=== PATIENT | male | born 1990 | race Caucasian/White ===

== ENCOUNTER 2017-02-17 17:53 | Inpatient (IN) | payer OTHER ==
--- NOTE | ~2017-02-17 | PN ---
Unit #: [id number] #: [id number] Patient: FELICITY SHAY [id number] [facility] [address] [place] [address] [id number] MR#: [id number] NAME: FELICITY SHAY ROOM: P258 Age: 26 Sex: M Admission Date: 02/17/2017 : 1990 Attending Physician: Gil Flores M.D. Admitting Physician: Gil Flores M.D. Primary Care Physician: Primary Care Physician Shawanda DODD PROGRESS NOTES DATE 02/21/2017 DISCUSSION Felicity is a 26-year-old male, seen on 02/21/2017. The patient interviewed, chart reviewed, and obtained information from the nursing staff. The patient was compliant and cooperative. Mood sad and dysphoric, flat affect, and guarded. The patient's vital signs, 97.5, 82, and 132/85. The patient continues to report hearing things, seeing things, suicidal ideation, flat, sad, dysphoric mood, flat affect, guarded, paranoid. REVIEW OF SYSTEMS Complete review of systems unremarkable. MENTAL STATUS EXAMINATION General appearance: Patient dressed casually. Attention span and concentration, poor. Oriented to place and person. Mood and affect, sad and dysphoric. Speech, monotone. Thought process, circumstantial. The patient reported having suicidal ideation, hallucinations. Recent and remote memory, poor. Insight and judgment, poor. DIAGNOSIS Schizophrenia, chronic, paranoid type. ASSESSMENT/PLAN Advised to continue with the current medication with the plan to increase Celexa to 40 mg daily for depressive symptoms and increased Thorazine 200 mg three times a day for psychosis. The patient's last WBC count 5.2. Dictated by... Gil Flores M.D. ALFONSO/chris TD: 02/22/2017 08:45 JOB #: [id number] Unit #: [id number] #: [id number] Patient: FELICITY SHAY YOUSIF PROGRESS NOTES Page 1 of 1 X Gil Flores MD PROGRESS NOTE
--- NOTE | ~2017-02-17 | PN ---
Unit #: [id number] #: [id number] Patient: FELICITY SHAY [id number] [facility] [address] [place] [address] [id number] I MR#: [id number] NAME: FELICITY SHAY ROOM: P258 Age: 26 Sex: M Admission Date: 02/17/2017 : 1990 Attending Physician: Gil Flores M.D. Admitting Physician: Gil Flores M.D. Primary Care Physician: Primary Care Physician Shawanda COURTNEY NOTES DATE OF SERVICE: 02/22/2017 DISCUSSION Felicity Shay is a 26-year-old male, seen on 02/22/2017. The patient interviewed, chart reviewed, and obtained information from nursing staff. The patient was compliant, cooperative, tolerating medication fairly well. Continues to report hearing voices, voices telling him to harm himself, visual hallucination and auditory hallucination, wanted his medication to be increased. The medication was increased recently. We will wait, but still mentioning above-mentioned symptom. Admission blood sugar drawn was 239 this morning. Complete review of systems unremarkable. MENTAL STATUS EXAMINATION General appearance, the patient dressed casually. Attention span and concentration, fair. Attention seeking behavior. Oriented in time, place, and person. Mood and affect, labile. Speech, rapid. Thought process, circumstantial, guarded and reported having suicidal ideation, hallucination, auditory or visual. Recent and remote memory, poor. Insight and judgment, poor. DIAGNOSES 1. Schizophrenia, chronic paranoid type. 2. Mood disorder, not otherwise specified. ASSESSMENT AND PLAN Advised to continue with current medication and therapeutic protocol. If needed, consider further adjustment of medication. Dictated by... Obie Rubi/abbi TD: 02/22/2017 16:38 JOB #: [id number] Unit #: [id number] #: [id number] Patient: FELICITY SHAY PROGRESS NOTES Page 1 of 1 X Gil Flores MD PROGRESS NOTE
--- NOTE | ~2017-02-17 | CO ---
Unit #: [id number] #: [id number] Patient: FELICITY SHAY [id number] [facility] [address] [place] [address] [id number] MR#: [id number] NAME: FELICITY SHAY ROOM: P258 Age: 26 Sex: M Admission Date: 02/17/2017 : 1990 Attending Physician: Gil Flores M.D. Primary Care Physician: Primary Care Physician No Consultation Date: 02/18/2017 CONSULTATION REPORT SUBJECTIVE Felicity is a 26-year-old with type 1 diabetes. We have reviewed his medications, written orders and are monitoring his Accu-Cheks. Dictated by... Wendy Lai P.A.-C. for Obie Larose/abbi TD: 02/19/2017 00:42 JOB #: [id number] CONSULTATION REPORT Page 1 of 1 X Wendy Lai CONSULTATION REPORT
--- NOTE | ~2017-02-17 | PA ---
Unit #: [id number] #: [id number] Patient: FELICITY SHAY [id number] [facility] [address] [place] [address] [id number] I MR#: [id number] NAME: FELICITY SHAY ROOM: [facility] Age: 26 Sex: M Admission Date: 02/17/2017 : 1990 Date of Assessment: Attending Physician: Gil Flores M.D. Admitting Physician: Gil Flores M.D. Primary Care Physician: Primary Care Physician No PSYCHIATRIC ASSESSMENT INFORMANTS The patient's reliability, fair; chart reliability, good. CHIEF COMPLAINT Self-mutilating behavior, hearing voices. HISTORY OF PRESENT ILLNESS Felicity Thomas is a 26-year-old male, who has a history of previous treatment at [facility] in 05/2016 through [facility], presented with command hallucination. The patient reported hearing voices, telling him to kill himself. The patient reported voices are telling him to overdose on insulin to cut his neck. The patient reported the voices are telling him to choke out other and stab them. The patient reported cutting wrist last night, superficial scratches. The patient reported taking all his medication for a week in one dose yesterday in an attempt to make voices go away. The patient reported receiving messages from TV, radio. Needing inpatient admission at this time for psychiatric stabilization. PAST PSYCHIATRIC HISTORY Remarkable for history of previous treatment as mentioned above. Last admitted to [facility] in 06/04/2016. FAMILY HISTORY AND SOCIAL HISTORY The patient lives with a roommate, single. Family psychiatric illness is unknown. No known history of any abuse. The patient's father was diagnosed with schizophrenia. MEDICAL HISTORY Remarkable for diabetes and obesity. Musculoskeletal; muscle strength and tone, no atrophy or abnormal movement. Gait normal. MEDICATION HISTORY The patient is currently on Levemir 25 units at bedtime, Protonix 40 mg at bedtime, Minipress 1 mg at bedtime, Requip 1 mg at bedtime, Celexa 20 mg at bedtime, trazodone 75 mg at bedtime, Clozaril 200 mg b.i.d., Trileptal 300 mg b.i.d., Protonix 40 mg daily. ALLERGIES No known drug allergies. SUBSTANCE ABUSE HISTORY None. Unit #: [id number] #: [id number] Patient: FELICITY SHAY REVIEW OF SYSTEMS HEENT: Eyes, clear. Ears, nose, mouth, and throat; clear. CARDIOVASCULAR: Unremarkable. RESPIRATORY: Unremarkable. GI: Unremarkable. : Unremarkable. SKIN: Unremarkable. LYMPH NODE: Unremarkable. NEUROLOGIC: Unremarkable. ENDOCRINE: Unremarkable. HEMATOLOGIC: Unremarkable. ALLERGIC/IMMUNOLOGIC: Unremarkable. MUSCULOSKELETAL: Muscle strength and tone, no atrophy or abnormal movement. Gait normal. MENTAL STATUS EXAMINATION CONSTITUTIONAL: Measurement of vital signs; temperature 98.3, pulse 102, respirations 20, blood pressure 144/91. Height 5 feet 9 inches, weight 212 pounds. GENERAL APPEARANCE: The patient dressed casually. Hygiene and grooming, poor. No facial deformity noted. MUSCULOSKELETAL: Please see above. PSYCHIATRIC EXAMINATION Description of speech, monotone. Description of thought process, circumstantial. Description of association, guarded, paranoid, delusion, hallucination of command hallucination, suicidal ideation. Denied any homicidal ideation. Description of the patient's judgment; concerning everyday activity, poor. Social situation, poor. Concerning psychiatric condition, poor. Complete mental status examination; oriented in time, place, and person. Recent and remote memory, fair. Attention span and concentration, fair. Language, able to name object and repeat phrases. Fund of knowledge, fair. Vocabulary, intact. Mood and affect, sad and depressed. Insight and judgment, fair to poor. ASSETS AND LIABILITIES Assets; the patient is articulate and able to take care of his ADL. Liability, history of depression and psychosis. ADMITTING DIAGNOSES Psychiatric: 1. Schizophrenia, chronic paranoid type, F20.0. 2. Rule out schizoaffective disorder, bipolar type, F25.9. 3. Anxiety disorder, not otherwise specified, F41.9. Secondary diagnosis: None. Medical diagnoses: Obesity, insulin-dependent diabetes mellitus, hypertension, hyperlipidemia. Stressors: Psychosocial stressor, chronic psychiatric illness, chronic medical condition. PSYCHIATRIC PLAN AND TREATMENT GOAL 1. Advised to admit the patient on the inpatient unit. Provide safe, supportive, and structured environment. Unit #: [id number] #: [id number] Patient: FELICITY SHAY 2. Ordered labs; CBC, CMP, UA, and UDS. 3. Precaution for self-harm, SP2 precaution, SIB2 precaution. Still observation for psychosis. VTS monitoring. 4. Advised to continue with current medication with a plan to add Thorazine 50 mg t.i.d., and SSRI. If needed, consider further adjustment of medication. Continue with Clozaril. If needed, make further adjustment of medication. We will also order medical consultation to monitor the patient's medical condition. Also monitor the patient's blood sugar. Treatment goal to attain euthymic mood, gain insight into his problem, and learn coping skills. DISCHARGE PLAN Plan to stabilize the patient and consider followup in outpatient program. ESTIMATED LENGTH OF STAY 5 to 10 days. Dictated by... Obie Rubi/abbi TD: 02/19/2017 03:26 JOB #: [id number] PSYCHIATRIC ASSESSMENT Page 1 of 1 X Gil Flores MD X PSYCHIATRIC ASSESSMENT
--- NOTE | ~2017-02-17 | PN ---
Unit #: [id number] #: [id number] Patient: FELICITY SHAY [id number] [facility] [address] [place] [address] [id number] I MR#: [id number] NAME: FELICITY SHAY ROOM: P258 Age: 26 Sex: M Admission Date: 02/17/2017 : 1990 Attending Physician: Gil Flores M.D. Admitting Physician: Gil Flores M.D. Primary Care Physician: Primary Care Physician Shawanda DODD PROGRESS NOTES DATE 02/24/2017 DISCUSSION Mr. Felicity Shay is a 26-year-old male seen on 02/24/2017. The patient interviewed, chart reviewed. Obtained information from nursing staff. The patient was compliant and cooperative. Reports sleeping good voices are better. Denied any thoughts of harming self or others. Compliant and cooperative. Complete review of systems unremarkable. MENTAL STATUS EXAMINATION General appearance, the patient dressed casually. Attention span and concentration fair. Mood and affect sad, dysphoric. Speech monotone. Thought process concrete. The patient denied any thoughts of harming self or others but still reporting voices. Recent and remote memory fair to poor. Insight and judgement fair to poor. DIAGNOSES Schizophrenia chronic paranoid type ASSESSMENT/PLAN Advise to continue with current medication and therapeutic protocol. If needed consider further adjustment of medication. Dictated by... Obie Rubi/vianca TD: 02/25/2017 02:00 JOB #: [id number] [facility] PROGRESS NOTES Page 1 of 1 X Gil Flores MD PROGRESS NOTE
--- NOTE | ~2017-02-17 | HP ---
Unit #: [id number] #: [id number] Patient: FELICITY SHAY [id number] [facility] [address] [place] [address] [id number] MR#: [id number] NAME: FELICITY HSAY ROOM: P258 Age: 26 Sex: M Admission Date: 02/17/2017 : 1990 Attending Physician: Gil Flores M.D. Admitting Physician: Gil Flores M.D. Primary Care Physician: Primary Care Physician No HISTORY AND PHYSICAL HISTORY OF PRESENT ILLNESS Felicity is a 26-year-old admitted to [address] [place] [address] with depression, verbalizing wanting to hurt himself. He has had numerous admissions to this facility. PAST MEDICAL HISTORY 1. Juvenile diabetes. He is noncompliant with his insulin. 2. Long history of polysubstance abuse. He denies anything currently. 3. High blood pressure. 4. Hyperlipidemia. 5. Gastroparesis. 6. History of psoriasis. PAST SURGICAL HISTORY Nothing reported. ALLERGIES No known drug allergies. SOCIAL HISTORY He denies cigarettes, alcohol and illicit drug use. FAMILY HISTORY Medically noncontributory. REVIEW OF SYSTEMS CONSTITUTIONAL: No fever or chills. HEENT: Denies any sore throat, ear pain or runny nose. CARDIOVASCULAR: Denies chest pain, irregular heart rhythm or palpitations. CHEST: Denies shortness of breath or cough. No hemoptysis. GASTROINTESTINAL: He does report some vomiting since admission. He has had in diarrhea. ENDOCRINE: Denies history of increased thirst or urination. No recent significant weight loss or gain. GENITOURINARY: Denies dysuria, frequency, or hematuria. SKIN: Denies any rashes. HEMATOLOGIC: Denies history of increased bleeding or bruising. MUSCULOSKELETAL: Denies any hot, swollen joints. No generalized muscle pain. NEUROLOGIC: Denies problems with vision or speech. No frequent, severe headaches. No numbness, tingling or weakness in any extremities. Denies loss of bladder or bowel control. CURRENT MEDICATIONS Unit #: [id number] #: [id number] Patient: FELICITY SHAY Phenergan 25 mg IM q 4 hours p.r.n. Levemir 25 units q h.s. Protonix 40 mg q h.s. Minipress 1 mg q h.s. Requip 1 mg q h.s. Celexa 20 mg q h.s. Trazodone 75 mg q h.s. Clozaril 200 mg b.i.d. Trileptal 300 mg b.i.d. Milk of Magnesia p.r.n. Maalox p.r.n. Tylenol p.r.n. NovoLog per sliding scale. NovoLog 5 units before each meal. PHYSICAL EXAMINATION GENERAL: Alert, well-nourished, in no apparent distress. VITAL SIGNS: B/P 144/90, heart rate 100, respirations 16, temperature 98.6. WEIGHT: 212 pounds. Height 5'9" SKIN: Warm and dry without rash or lesion. HEENT: Normocephalic. TMs not viewed. Oral and nasal passages clear. Conjunctivae clear. PERRLA. EOMs intact. NECK: Supple without lymphadenopathy or thyromegaly. HEART: Regular rate and rhythm without murmur. LUNGS: Clear. ABDOMEN: Soft, nontender. : Not done. EXTREMITIES: No evidence of cyanosis, clubbing or edema. Moves all without focal deficit. NEUROLOGICAL: Grossly within normal limits. Cranial Nerves: II: Visual chapin are intact. III, IV AND : Extraocular movements are intact. Pupils are equal, round and reactive to light. V: Facial sensation is grossly normal. VII: Facial movements and expression are normal. VIII: Auditory acuity grossly intact. IX, X: Uvula is midline. Phonation is normal. XI: Patient shrugs shoulders and turns head normally. XII: Tongue protrudes in the midline. Sensory and Motor Function: Sensory and motor sensation is grossly normal. Motor: moves all extremities well. Coordination: Gait is normal. Deep Tendon Reflexes: Intact. Accu-Chek on admission greater than 600. He was given 22 units of Humalog subcu for this blood sugar. MEDICAL ASSESSMENT AND PLAN 1. Psychiatric admission. 2. Juvenile diabetes. Patient continues to be noncompliant with his insulins. RECOMMENDATIONS 1. Psychiatric, per psychiatrist. 2. I see no contraindications to participating in facility's activities. MEDICAL PROGNOSIS Good. MEDICAL CONDITION Unit #: [id number] #: [id number] Patient: FELICITY SHAY Stable. Dictated by... Jolie Sotomayor/jackelyn TD: 02/18/2017 01:29 JOB #: [id number] HISTORY AND PHYSICAL Page 1 of 1 X Wendy Lai X HISTORY AND PHYSICAL
--- NOTE | ~2017-02-17 | DS ---
Unit #: [id number] #: [id number] Patient: FELICITY SHAY [id number] [facility] [address] [place] [address] [id number] I MR#: [id number] NAME: FELICITY SHAY ROOM: P258 Age: 26 Sex: M Admission Date: 02/17/2017 : 1990 Discharge Date: 02/25/2017 Attending Physician: Gil Flores M.D. Primary Care Physician: Primary Care Physician No DISCHARGE SUMMARY REASON FOR ADMISSION Psychosis, depression, suicidal ideation. DIAGNOSTIC STUDIES LABORATORY DATA: Unremarkable except WBC 5.2. HOSPITAL COURSE The patient was admitted to inpatient unit on February 17 and discharged on 02/25/2017. The patient was treated with group therapy, individual therapy, and medication management. The patient responded well with the above modalities of treatment and showed improvement. Subsequently the patient was discharged with a plan to follow up in outpatient program. DISCHARGE MEDICATIONS 1. Trileptal 300 mg twice daily for mood symptom. 2. Requip 1 mg at bedtime for restless legs. 3. Minipress 1 mg at bedtime for nightmare. 4. Zestril 10 mg daily for hypertension. 5. Clozaril 200 mg twice daily for psychosis with weekly WBC test. 6. Protonix 40 mg at bedtime for GERD. 7. Celexa 40 mg daily for depression. 8. Thorazine 100 mg 3 times a day for psychosis. 9. Melatonin 5 mg at bedtime for sleep. 10. Sinequan 200 mg at bedtime for sleep. The patient needed Clozaril and Thorazine combination as unable to do well with one antipsychotic medication. The patient was tried on Clozaril, Thorazine, and Risperdal in the past. Plan to taper off Thorazine once the patient is stable, within 6 months. The patient is currently on Clozaril. DISCHARGE DIAGNOSES PSYCHIATRIC: Schizophrenia, chronic, paranoid type, F20.0 Anxiety disorder not otherwise specified, F41.9 SECONDARY: Deferred. MEDICAL: Obesity. Insulin-dependent diabetes mellitus. Hypertension. Hyperlipidemia. STRESSORS: Psychosocial stressor. Chronic psychiatric issues. Chronic medical condition. FOLLOWUP CARE Unit #: [id number] #: [id number] Patient: FELICITY SHAY The patient to follow up in outpatient clinic as per health social work professor. CONDITION AT DISCHARGE The patient pleasant, cooperative. Denied any psychotic symptom or any suicidal ideation. PROGNOSIS Guarded. DIET AND ACTIVITY As tolerated. Dictated by... Obie Rubi/henrietta TD: 02/26/2017 06:48 JOB #: [id number] DISCHARGE SUMMARY Page 1 of 1 X Gil Flores MD X DISCHARGE SUMMARY
--- NOTE | ~2017-02-17 | PN ---
Unit #: [id number] #: [id number] Patient: FELICITY SHAY [id number] [facility] [address] [place] [address] [id number] I MR#: [id number] NAME: FELICITY SHAY ROOM: P258 Age: 26 Sex: M Admission Date: 02/17/2017 : 1990 Attending Physician: Gil Flores M.D. Admitting Physician: Gil Flores M.D. Primary Care Physician: Primary Care Physician Shawanda COURTNEY NOTES DATE OF SERVICE 02/19/2017 DISCUSSION Felicity Shay is a 26-year-old male seen on 02/19/2017. The patient interviewed, chart reviewed. Obtained information from nursing staff. The patient reported still hearing voices. Voices telling him to harm himself. Denied any plans. The patient guarded, paranoid. Declined family session. The patient continues to be isolative. Encouraged to attend group. Complete Review of Systems: Unremarkable. MENTAL STATUS EXAMINATION General Appearance: The patient's hygiene and grooming poor. Dressed casually. Attention span, concentration: Poor. Oriented in place and person. Mood and affect: Sad, depressed. Speech: Monotone. Thought process: [place]. The patient reported having suicidal ideation, hallucinations, hearing voices. Denied any plans. Able to contract for safety on the unit. Recent and remote memory: Poor. Insight and judgment: Poor. DIAGNOSIS Schizophrenia, chronic, paranoid type. ASSESSMENT/PLAN Advised to continue with current medication. If needed, consider further adjustment of medication such as increasing the dosage of Thorazine. The patient is currently on Clozaril. We will continue with that. The patient's CBC showed WBC 5.2, hemoglobin 13.1. Dictated by... Gil Flores M.D. SZTennille/henrietta TD: 02/20/2017 07:41 JOB #: [id number] Unit #: [id number] #: [id number] Patient: FELICITY SHAY PEAALISSA PROGRESS NOTES Page 1 of 1 X Gil Flores MD X PROGRESS NOTE
--- NOTE | ~2017-02-17 | PN ---
Unit #: [id number] #: [id number] Patient: FELICITY SHAY [id number] [facility] [address] [place] [address] [id number] I MR#: [id number] NAME: FELICITY SHAY ROOM: P258 Age: 26 Sex: M Admission Date: 02/17/2017 : 1990 Attending Physician: Gil Flores M.D. Admitting Physician: Gil Flores M.D. Primary Care Physician: Primary Care Physician Shawanda COURTNEY NOTES DATE OF SERVICE: 02/20/2017 DISCUSSION Felicity is a 26-year-old male, seen on 02/20/2017. The patient interviewed, chart reviewed, and obtained information from nursing staff. The patient continues to report hearing voices, visual hallucination, auditory hallucination, suicidal ideation, able to contract for safety, guarded, withdrawn, isolative. REVIEW OF SYSTEMS Complete review of systems unremarkable. MENTAL STATUS EXAMINATION General appearance, the patient dressed casually. Attention span and concentration, poor. Oriented in place and person. Mood and affect, labile. Speech, rapid. Thought process, circumstantial. The patient reported hallucination, visual and auditory; suicidal ideation. Recent and remote memory, poor. Insight and judgment, poor. DIAGNOSES 1. Schizophrenia, chronic, paranoid type. 2. Mood disorder, not otherwise specified. ASSESSMENT AND PLAN Advised to continue with current medication and therapeutic protocol. If needed, consider further adjustment of medication. Dictated by... Obie Rubi/abbi TD: 02/22/2017 02:30 JOB #: [id number] Unit #: [id number] #: [id number] Patient: FELICITY SHAY FABYALISSA PROGRESS NOTES Page 1 of 1 X Gil Flores MD PROGRESS NOTE
--- NOTE | ~2017-02-17 | PN ---
Unit #: [id number] #: [id number] Patient: FELICITY SHAY [id number] [facility] [address] [place] [address] [id number] I MR#: [id number] NAME: FELICITY SHAY ROOM: P258 Age: 26 Sex: M Admission Date: 02/17/2017 : 1990 Attending Physician: Gil Flores M.D. Admitting Physician: Gil Flores M.D. Primary Care Physician: Primary Care Physician Shawanda DODD PROGRESS NOTES DATE 02/18/2017 DISCUSSION Felicity Shay is a 26-year-old male, seen on 02/18/2017. The patient pleasant and cooperative, mood sad and dysphoric, flat affect, guarded, paranoid. The patient compliant with medication but still having depressive symptoms or hallucinations. REVIEW OF SYSTEMS Complete review of systems unremarkable. MENTAL STATUS EXAMINATION General appearance: Patient dressed casually, dressed in hospital attire, withdrawn, isolative. Attention span and concentration, poor. Oriented to place and person. Mood and affect, sad and depressed. Speech, monotone. Thought process, concrete. The patient reported having suicidal ideation, hallucinations. Recent and remote memory, poor. Insight and judgment, poor. DIAGNOSIS Schizophrenia, chronic paranoid type. ASSESSMENT/PLAN Advised to continue with the current medication and therapeutic protocol and if needed consider further adjustment of medication. Dictated by... Obie Rubi/chris TD: 02/19/2017 08:35 JOB #: [id number] Unit #: [id number] #: [id number] Patient: FELICITY SHAY PROGRESS NOTES Page 1 of 1 X Gil Flores MD PROGRESS NOTE
--- NOTE | ~2017-02-17 | PN ---
Unit #: [id number] #: [id number] Patient: FELICITY SHAY [id number] [facility] [address] [place] [address] [id number] MR#: [id number] NAME: FELICITY SHAY ROOM: P258 Age: 26 Sex: M Admission Date: 02/17/2017 : 1990 Attending Physician: Gil Flores M.D. Admitting Physician: Gil Flores M.D. Primary Care Physician: Primary Care Physician Shawanda DODD PROGRESS NOTES DATE 02/23/2017 DISCUSSION Felicity Shay is a 26-year-old male seen on 02/23/2017. The patient interviewed, chart reviewed. Obtained information from nursing staff. The patient compliant and cooperative but reported that he is still hearing voices voices telling him to harm himself. The patient reports having trouble sleeping. Reports medication causing him nightmares. The patient still guarded, withdrawn, isolative. Mood labile. Complete review of systems unremarkable. MENTAL STATUS EXAMINATION General appearance, the patient dressed casually. Attention span and concentration poor. Oriented to place and person. Mood and affect labile. Speech rapid. Thought process circumstantial. The patient denied any thoughts of harming others but having suicidal ideation, hallucination, command hallucination. Recent and remote memory poor. Insight and judgement poor. DIAGNOSES Schizophrenia chronic paranoid type. ASSESSMENT/PLAN Advise to discontinue trazodone, increase doxepin to 200 mg at bedtime to help with depression, anxiety, sleep and continue with the other medication same. If needed consider further adjustment of medication. Continue with all the precaution to keep the patient safe on the unit. Dictated by... Obie Rubi/vianca TD: 02/24/2017 03:12 JOB #: [id number] Unit #: [id number] #: [id number] Patient: FELICITY SHAY PROGRESS NOTES Page 1 of 1 X Gil Flores MD PROGRESS NOTE
[2017-02-19 09:27] LABS: BASOPHIL% 0.1 % (0-2.5); HEMATOCRIT 39.8 % (38.0-50.0); HEMOGLOBIN 13.1 gm/dL (13.0-16.0); LYMPHOCYTE# 2.4 X10e3 (1.0-3.5); LYMPHOCYTE% 47.1 % (17.0-45.0); MEAN CELL VOLUME 84.8 FL (83-96); MEAN PLATELET VOLUME 8.6 FL (6.5-11.5); MONOCYTE# 0.7 X10e3 (0-1.0); MONOCYTE% 13.1 % (3.0-12.0); NEUTROPHIL# 2.1 X10e3 (1.5-7.1); NEUTROPHIL% 39.7 % (40-75); PLATELET COUNT 283 X10e3 (140-420); RED CELL DISTRIBUTION WIDTH 13.8 % (11.0-15.5); WHITE BLOOD COUNT 5.2 X10e3 (4.0-10.5)
[2017-02-19 09:40] LABS: DIFF IND NO
[2017-02-19 09:41] LABS: ALBUMIN SERUM 3.8 g/dL (3.5-5.0); BILIRUBIN,TOTAL 0.7 mg/dL (0.2-2.0); BUN/CREATININE RATIO 21.42; CALCIUM SERUM 9.1 mg/dL (8.4-10.2); CREATININE SERUM 0.7 mg/dL (0.6-1.4); GLOM FILT RATE Estimated 130.3 mL/min (>60); POTASSIUM 3.9 mmol/L (3.5-5.1); PROTEIN TOTAL SERUM 7.1 g/dL (6.0-8.3)
[2017-02-22 09:38] LABS: URINE APPEARANCE CLEAR; URINE BILIRUBIN NEG (NEG); URINE BLOOD NEG (NEG); URINE COLOR YELLOW; URINE GLUCOSE >1000 MG/DL (NEG); URINE KETONE NEG (NEG); URINE LEUKOCYTE ESTERASE NEG (NEG); URINE NITRATE NEG (NEG); URINE PROTEIN NEG (NEG); URINE SPECIFIC GRAVITY 1.023 (1.003-1.035); URINE UROBILINOGEN 0.2 MG/DL (NEG)
[2017-02-22 10:01] LABS: AMPHETAMINE NEG (NEG); BARBITURATES NEG (NEG); BENZODIAZEPINES NEG (NEG); COCAINE NEG (NEG); MARIJUANA NEG (NEG); OPIATES NEG (NEG); TRICYCLIC ANTIDEPRESSANTS POS (NEG); U METHADONE NEG (NEG)
== END 2017-02-25 11:10 | disposition home or self-care (01) | DRG 885 ==
LOC: P2L 17:53
PROVIDERS: Psychiatry & Neurology Psychiatry
DX: F20.0 Paranoid schizophrenia (principal); K31.84 Gastroparesis; E10.43 Type 1 diabetes mellitus with diabetic autonomic (poly)neuropathy; F41.9 Anxiety disorder, unspecified; E66.9 Obesity, unspecified; Z79.4 Long term (current) use of insulin; I10 Essential (primary) hypertension; E78.5 Hyperlipidemia, unspecified; Z91.14 Patient's other noncompliance with medication regimen; Z91.5 Personal history of self-harm; L40.9 Psoriasis, unspecified; G25.81 Restless legs syndrome
CPT/HCPCS: 80053; 80307; 81003; 82947; 85025; J2550